=== PATIENT | male | born 1995 | race Caucasian/White ===

== ENCOUNTER 2016-11-03 14:21 | Emergency (ER) | payer OTHER ==
[~2016-11-03] VITALS: Ht 172.7 cm; Wt 62.6 kg
[2016-11-03 14:26] VITALS: BP 163/84
== END 2016-11-03 15:51 | disposition left against medical advice (07) ==
LOC: ED 14:21
DX: Z53.21 Procedure and treatment not carried out due to patient leaving prior to being seen by health care provider (principal)

== ENCOUNTER 2016-11-04 00:18 | Emergency (ER) | payer OTHER ==
[2016-11-04 00:48] VITALS: BP 134/72
== END 2016-11-04 02:19 | disposition left against medical advice (07) ==
LOC: ED 00:18
DX: Z53.21 Procedure and treatment not carried out due to patient leaving prior to being seen by health care provider (principal)

== ENCOUNTER 2018-05-11 16:47 | Emergency (ER) | payer OTHER ==
[~2018-05-11] VITALS: Ht 170.2 cm; Wt 65.8 kg
[2018-05-11 17:05] VITALS: BP 151/91; Ht 170.2 cm; Wt 65.8 kg
== END 2018-05-11 17:49 | disposition left against medical advice (07) ==
LOC: ED 16:47
DX: Z53.21 Procedure and treatment not carried out due to patient leaving prior to being seen by health care provider (principal)